=== PATIENT | male | born 1985 | race Caucasian/White ===

== ENCOUNTER 2021-09-30 16:55 | Inpatient (IN) ==
[2021-09-30] MEDS ORDERED: PIPERACILLIN SODIUM/TAZOBACTAM 3.375 GM in DEXTROSE 5% IN WATER 50 ML IV ONE (17:00)
[2021-09-30] MEDS ORDERED: 0.9 % SODIUM CHLORIDE 1,000 ML IV ONE (17:00)
--- NOTE | 2021-09-30 17:28 | Emergency Department Note ---
Abdominal Pain HPI <Diana Staples PA-C - Last Filed: 09/30/21 20:00> General Chief Complaint: Abdominal Pain Stated Complaint: Diverticulite Abscess Time Seen by Provider: 09/30/21 17:00 Source: patient Mode of arrival: ambulatory Limitations: no limitations History of Present Illness HPI Narrative: 35-year-old male presents with 48 hours of left lower quadrant abdominal pain. He was seen in the minor care today and had a CT scan that showed a perforated sigmoid diverticula. Patient was sent over here for definitive care. Patient has no previous history of diverticulitis. Last normal bowel movement was 2 days ago, loose stools since then. No blood in his stool. Denies nausea or vomiting. Last meal 10 AM. Related Data Home Medications Medication Instructions Recorded Confirmed No Known Home Meds 11/13/20 10/01/21 Allergies Allergy/AdvReac Type Severity Reaction Status Date / Time No Known Drug Allergies Allergy Verified 09/30/21 15:21 Review of Systems <Diana Staples PA-C - Last Filed: 09/30/21 20:00> ROS ROS Narrative: Narrative: All systems ED: reviewed and negative except as stated. 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 Pleasant and conversant. HEENT: PERRL, EOMI, normocephalic. Moist mucous membranes. Normal facies Respiratory: Lungs clear to auscultation bilaterally. No respiratory distress. Unlabored breathing. Heart: Regular rate and rhythm, no murmurs/clicks/rubs. Abdomen: Left lower quadrant tenderness, Non distended, hypoactive bowel tones. No organomegaly. Extremities: Warm and well perfused. No edema. DP 2+ bilaterally. No venous stasis. Neuro: No focal deficits. Cranial nerves II-XII grossly normal. Skin: Warm dry, no rashes or lesions, no cyanosis. Psych: Normal mood and affect Heme/Lymph: No abnormal bruising General Limitations: no limitations Course <Diana Staples PA-C - Last Filed: 09/30/21 20:00> Course Course Narrative: 35-year-old male presents with perforated sigmoid diverticuli Reevaluation(s) Reevaluation #1: Establish IV and give Zosyn CBC, CMP, lactic acid, blood cultures x2 IV fluids, antiemetics and analgesics. Reevaluation #2: CBC with mild leukocytosis of 11,500 with left shift CMP with transaminitis with a T bili of 2.1 and AST 61/ALT 83. He has a history of transaminitis and CT scan does show evidence of fatty liver infiltration. No evidence of hepatobiliary obstruction or infectious process on CT imaging today. Consultations Consultation #1: Dr. Chavarria, general surgery consultation. He is recommending placement of a percutaneous drain and will therefore need interventional radiology. We do not have that available here. I have reached out to local hospitals and waiting for response. Consultation #2: Dr. Kumar, general surgery at [facility] does not feel that this patient requires interventional radiology at this time. He believes that the patient is appropriate for admission and IV antibiotics. I reached back to Dr. Chavarria to discuss the patient's case. He was made aware that there are no beds available either in [place] or [place]. He is willing to admit the patient for IV antibiotic therapies and is asked me to start IV Flagyl and ciprofloxacin. Vital Signs Vital signs: Vital Signs Pulse Rate 106 H 09/30/21 17:35 Blood Pressure 136/78 09/30/21 17:35 Pulse Oximetry (%) 97 09/30/21 17:35 Temperature 97.6 F 10/01/21 15:22 Pulse Rate 80 10/01/21 15:22 Respiratory Rate 16 10/01/21 15:22 Blood Pressure 126/79 10/01/21 15:22 Pulse Oximetry (%) 97 10/01/21 15:22 [facility] <Diana Staples PA-C - Last Filed: 09/30/21 20:00> [facility] Narrative Medical decision making narrative: Diverticular abscess I discussed the patient with the general surgeon at [facility], and he feels that the patient does not need interventions at this time and would be appropriate for inpatient admission and IV antibiotics with observation, which can be done here. There are currently no available beds in [facility]. I have r eached backed out to Dr. Chavarria, general surgery, and he agrees that the patient is appropriate for monitoring and IV antibiotics, and is comfortable admitting the patient here at our facility. Lab Data Result diagrams: 10/01/21 05:25 10/01/21 05:25 Labs: Lab Results 09/30/21 Range/Units 17:47 VBG Lactic Acid 1.0 (0.5-2.0) mmol/L ED POC Tests ED POC Tests: TERE - SARS Antigen Negative Discharge Plan Patient/Caregiver Discharge Instructions Pt seen by [employer]/PA only: Yes Clinical Impression: Intestinal diverticular abscess Patient Disposition: Xfer As Inpt ([facility]) Condition: Fair Discharge Date/Time: 09/30/21 21:44 Discharge Location: [facility]
[2021-09-30] MEDS: HYDROmorphone 1 MG/ML SYRINGE IV PRN (18:04)
[2021-09-30] MEDS ORDERED: metroNIDAZOLE 500 MG/100 ML BAG IV ONE (18:55)
[2021-09-30] MEDS ORDERED: CIPROFLOXACIN 400 MG/200 ML BAG IV ONE (19:01)
--- NOTE | 2021-09-30 20:13 | General Surgery Consult Note ---
HPI Data of Consult Patient: new to practice Consult date: 09/30/21 Primary Care Provider: PCP No Consult Narrative Patient Information: Note initiated : 09/30/21 at 8:04 pm Service Date, if different from initiated Date: [] Patient: Juan Basurto a 35 y/o M admitted on for Diverticulite Abscess. Chief Complaint: [] Juan is seen in consultation today with a 48 hour history of worsening and increasingly severe LLQ pain that began 2 nights ago. He was seen in the ER and a CT scan confirmed evidence of Acute Sigmoid Diverticulitis with evidence of a pericolonic abscess measuring roughly 5 cm in maximal dimension. There was no evidence of free air or generalized peritonitis. I recommended transfer to a center with available interventional radiology for evaluation for percutaneous drain placement but was called back after extensive attempts to find a suitable accepting hospital failed. He last ate early today and denies any prior history of intra abdominal surgery or Colonoscopy. His health is generally good and he denies any major medical issues. He is not on any home medications. He denies drug allergies. He is accompanied by his at this time. He has been passing gas and stool and has been without evidence of obstruction. 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 (Acute) Medical History (Updated 09/30/21 @ 20:21 by Cesar Chavarria MD) Gastroenteritis MEDS/ALLERGIES Home Medications and Allergies Home Medications Medication Instructions Recorded Confirmed Type No Known Home Meds 11/13/20 09/30/21 History Allergies Allergy/AdvReac Type Severity Reaction Status Date / Time No Known Drug Allergies Allergy Verified 09/30/21 15:21 Physical Examination Vital Signs Vital signs: Pulse BP Pulse Ox 106 H 112/63 96 09/30/21 19:31 09/30/21 19:31 09/30/21 19:31 General physical appearance General physical exam: well developed, well nourished and no distress Eyes Eye exam: normal ocular movement; negative icteric ENT ENT exam: normal pinna and normal nares; negative nasal discharge Head Head exam IM: Present atraumatic, normal inspection and normocephalic Neck Neck exam: no masses, trachea midline and no lymphadenopathy Cardiovascular Cardiovascular exam IM: Present normal rate and rhythm and RRR Respiratory Respiratory exam: normal respiratory effort and other (no respiratory distress ) Abdomen Abdomen: Present soft and non tender (he has localized tenderness with guarding in the focal LLQ but the remainder of the abdominal exam is soft, non tender and benign ); Absent distended Hernia: Absent none Integumentary Integumentary: Present no rash Neurologic Neurologic: Present other (fully alert and oriented, motor grossly intact ) Psychiatric Psychiatric: Present oriented to time, oriented to person, oriented to place and other (normal affect ) Results Labs Labs: All other labs normal. A/P Assessment and plan (1) Abscess of sigmoid colon due to diverticulitis: Assessment and plan: Acute Sigmoid Diverticulitis with Associated Abscess He has no evidence of generalized peritonitis at this time and appears well localized to the LLQ. Ideally he would undergo evaluation for Percutaneous Dr vogel of the Pericolonic Abscess but that has been unavailable in attempts to transfer therefore we will admit him for IV ABs, Bowel Rest and Close Observational Management. Potential outcomes including possible need for Emergent Abdominal Exploration with Drainage, Washout, Resection and End Colostomy were all discussed with he and his . Additionally, possibility of repeat CT in the next few days with attempted transfer at that time for Percutaneous Drainage was also discussed and they have a good understanding of the situation. Rationale for our intended management plan along with a full discussion of associated Risks, Benefits, Potential Complications and Alternative Treatment Options were also all discussed at length and they are in agreement with the plan Status: Acute Time Spent With Patient Time: Total time spent is greater than 50% in coordination of care (as documented) at patient's floor/unit and/or counseling patient:
[2021-09-30] MEDS ORDERED: ONDANSETRON 4 MG/2 ML VIAL IV PRN (20:29)
[2021-09-30] MEDS ORDERED: ACETAMINOPHEN 325 MG TABLET PO PRN (20:34)
[2021-09-30] MEDS ORDERED: DEXTROSE 5%-1/2NS 1,000 ML IV SCH (20:45)
[2021-09-30] MEDS: CIPROFLOXACIN 400 MG/200 ML BAG IV SCH (21:54)
[2021-09-30] MEDS: metroNIDAZOLE 500 MG/100 ML BAG IV SCH (21:54)
[2021-09-30] MEDS: HYDROmorphone 0.5 MG/0.5 ML SYRINGE IV PRN (22:06)
[2021-09-30] MEDS: DEXTROSE 5%-LR 1,000 ML IV SCH (22:07)
[2021-09-30] MEDS: 0.9 % SODIUM CHLORIDE 10 ML SYRINGE IV SCH (22:08)
[2021-10-01] MEDS: HYDROmorphone 0.5 MG/0.5 ML SYRINGE IV PRN ×2 (00:25→05:18)
[2021-10-01] MEDS: metroNIDAZOLE 500 MG/100 ML BAG IV SCH (05:19)
[2021-10-01] MEDS: 0.9 % SODIUM CHLORIDE 10 ML SYRINGE IV SCH ×3 (05:19→21:45)
[2021-10-01 06:34] LABS: Hematocrit 35.8 % (40.1-51.0); Hemoglobin 11.9 g/dL (13.7-17.5); Mean Cell Volume 85.4 fL (80.0-100.0); Mean Corpuscular HGB Conc 33.2 g/dL (31.0-36.0); Mean Platelet Volume 10.1 fL (7.4-10.4); Platelet Count 233 K/mcL (140-440); RBC 4.19 M/mcL (4.63-6.08); Red Cell Distribution Width 13.4 % (11.5-14.5); WBC 13.6 K/mcL (4.5-11.0)
[2021-10-01 06:52] LABS: Blood Urea Nitrogen 8 mg/dL (6-20); Calcium 8.2 mg/dL (8.6-10.4); Carbon Dioxide 25 mmol/L (22-30); Chloride 99 mmol/L (96-108); Glomerular Filtration Rate 110; Glucose 133 mg/dL (70-105)
[2021-10-01] MEDS: DEXTROSE 5%-LR 1,000 ML IV SCH ×3 (07:33→19:54)
[2021-10-01] MEDS: HYDROmorphone 1 MG/ML SYRINGE IV PRN ×5 (07:33→19:48)
[2021-10-01] MEDS ORDERED: ACETAMINOPHEN 650 MG/65 ML BAG IV PRN (08:41)
--- NOTE | 2021-10-01 09:22 | General Surgery Progress Note ---
SUBJECTIVE Subjective Patient information: Note initiated : 10/01/21 at 9:16 am Service Date, if different from initiated Date: [] Patient: Juan Basurto 35 y/o M admitted on 09/30/21 for Diverticulite Abscess. Chief Complaint: [Sigmiod Diverticulitis with Abscess] Continues to have pain, feels better overall but requiring regular pain meds. Pain remains localized to the LLQ, passing some gas Constitutional Vitals: Vital Signs Temp Pulse Resp BP Pulse Ox 98.1 F 89 18 118/74 96 10/01/21 07:38 10/01/21 07:38 10/01/21 07:38 10/01/21 07:38 10/01/21 07:38 Period Temp Pulse Resp BP Sys/Rogers Pulse Ox Last 24 Hr 98.0 F-100.1 F 89-112 18-20 103-136/57-88 94-98 Intake and Output 09/30/21 10/01/21 10/01/21 21:59 05:59 13:59 Intake Total 1350 1043 Output Total 600 Balance 1350 -600 1043 Weight 224 lb 8 oz Intake & Output: Intake & Output 09/30/21 10/01/21 10/01/21 21:59 05:59 13:59 Intake Total 1350 1043 Output Total 600 Balance 1350 -600 1043 Weight 224 lb 8 oz Intake: IV 1350 1043 Sodium Chloride 0.9% 1,000 ml @ 1000 Wide Open IV [facility] Rx#: [id number] Dextrose 5%-Lactated Ringers 1, 943 000 ml @ 100 mls/hr IV .Q10H [facility] Rx#:[id number] Zosyn 3.375 gm In Dextrose 5% 50 in Water 50 ml @ 100 mls/hr IV ONCE ONE Rx#:[id number] Output: Void Amount 600 Other: Urine Appearance Clear Urine Color Light Gisela General appearance: cooperative and no acute distress Respiratory Additional comments: no respiratory distress Cardiovascular Cardiovascular exam: Present normal rate and rhythm and RRR GI/Abdominal Additional comments: belly remains soft and non distended, localized LLQ Tenderness but remainder is soft and benign Neurological Exam Neurological exam: Present oriented X3 Psychiatric Psychiatric exam: Present normal affect A/P Assessment and plan (1) Left lower quadrant abdominal pain: Status: Acute (2) Abscess of sigmoid colon due to diverticulitis: Assessment and plan: HD #1 Diverticulitis with Abscess WBC has gone up and pain not substantially improved - will add Meropenem and d/c Flagyl If no improvement over next 24-48 hours then will re scan to see if abscess remains and/or has enlarged in which case transfer to an IR capable facility would be necessary Ambulate as tolerated, clear sips ok, re check labs in AM Status: Acute Time Spent With Patient Time: Total time spent is greater than 50% in coordination of care (as documented) at patient's floor/unit and/or counseling patient:
[2021-10-01] MEDS: CIPROFLOXACIN 400 MG/200 ML BAG IV SCH ×3 (10:08→19:49)
[2021-10-01] MEDS: MEROPENEM 0.5 GM in 0.9 % SODIUM CHLORIDE 50 ML IV SCH ×2 (13:14→23:30)
[2021-10-02] MEDS: HYDROmorphone 1 MG/ML SYRINGE IV PRN ×5 (01:20→16:06)
[2021-10-02] MEDS: 0.9 % SODIUM CHLORIDE 10 ML SYRINGE IV SCH ×3 (04:29→20:44)
[2021-10-02] MEDS: MEROPENEM 0.5 GM in 0.9 % SODIUM CHLORIDE 50 ML IV SCH ×3 (05:20→22:19)
[2021-10-02] MEDS: DEXTROSE 5%-LR 1,000 ML IV SCH ×3 (05:24→22:55)
[2021-10-02 06:53] LABS: Hematocrit 35.5 % (40.1-51.0); Hemoglobin 11.5 g/dL (13.7-17.5); Mean Cell Volume 86.4 fL (80.0-100.0); Mean Corpuscular HGB Conc 32.4 g/dL (31.0-36.0); Mean Platelet Volume 9.8 fL (7.4-10.4); Platelet Count 284 K/mcL (140-440); RBC 4.11 M/mcL (4.63-6.08); Red Cell Distribution Width 13.5 % (11.5-14.5); WBC 10.3 K/mcL (4.5-11.0)
[2021-10-02 07:01] LABS: Blood Urea Nitrogen 8 mg/dL (6-20); Calcium 8.5 mg/dL (8.6-10.4); Carbon Dioxide 24 mmol/L (22-30); Chloride 100 mmol/L (96-108); Glomerular Filtration Rate 116; Glucose 108 mg/dL (70-105)
[2021-10-02] MEDS: CIPROFLOXACIN 400 MG/200 ML BAG IV SCH ×2 (08:30→20:39)
--- NOTE | 2021-10-02 09:51 | General Surgery Progress Note ---
SUBJECTIVE Subjective Patient information: Note initiated : 10/02/21 at 9:48 am Service Date, if different from initiated Date: [] Patient: Juan Basurto 35 y/o M admitted on 09/30/21 for Diverticulite Abscess. Chief Complaint: [Sigmoid Diverticulitis with Diverticular Abscess] Definitely feels better today with less pain and no temps. Passing some gas and just feels much better overall. Constitutional Vitals: Vital Signs Temp Pulse Resp BP Pulse Ox 97.3 F 91 H 18 118/76 97 10/02/21 08:00 10/02/21 08:00 10/02/21 08:00 10/02/21 08:00 10/02/21 08:00 Period Temp Pulse Resp BP Sys/Rogers Pulse Ox Last 24 Hr 97.3 F-98.9 F 80-92 16-18 117-126/71-79 95-98 Intake and Output 10/01/21 10/02/21 10/02/21 21:59 05:59 13:59 Intake Total 1350 100 Output Total 1150 800 500 Balance 200 -700 -500 Weight 225 lb 4 oz Intake & Output: Intake & Output 10/01/21 10/02/21 10/02/21 21:59 05:59 13:59 Intake Total 1350 100 Output Total 1150 800 500 Balance 200 -700 -500 Weight 225 lb 4 oz Intake: IV 1250 100 Dextrose 5%-Lactated Ringers 1, 1000 000 ml @ 100 mls/hr IV .Q10H [facility] Rx#:[id number] Merrem 0.5 gm In Sodium 50 100 Chloride 0.9% 50 ml @ 100 mls/ hr IV Q8 [facility] Rx#:[id number] Oral 100 Output: Void Amount 1150 800 500 Other: Urine Appearance Clear Clear Clear Urine Color Dark Yellow Dark Yellow Dark Yellow Light Gisela Urine Odor Normal Normal Normal General appearance: no acute distress Respiratory Additional comments: no respiratory distress Cardiovascular Cardiovascular exam: Present RRR GI/Abdominal Additional comments: soft and non distended, lessened LLQ tenderness and remainder of exam benign Extremities Exam Additional comments: well perfused A/P Narrative A/P Narrative: HD#3 Acute Sigmoid Diverticulitis with Diverticular Abscess Seems improved with AB change yesterday Continue current mgmt for now, if doing will likely start clears in next day or two and then also Re Scan to assess status of Abscess to see if transfer for IR drainage is necessary Plan reviewed with him at length and all questions answered Time Spent With Patient Time: Total time spent is greater than 50% in coordination of care (as documented) at patient's floor/unit and/or counseling patient:
[2021-10-02] MEDS: HYDROmorphone 0.5 MG/0.5 ML SYRINGE IV PRN (20:38)
[2021-10-03] MEDS: DEXTROSE 5%-LR 1,000 ML IV SCH ×4 (00:48→14:20)
[2021-10-03] MEDS: MEROPENEM 0.5 GM in 0.9 % SODIUM CHLORIDE 50 ML IV SCH ×3 (05:12→21:47)
[2021-10-03] MEDS: 0.9 % SODIUM CHLORIDE 10 ML SYRINGE IV SCH ×3 (05:15→22:14)
[2021-10-03 07:15] LABS: Hematocrit 38.7 % (40.1-51.0); Hemoglobin 12.3 g/dL (13.7-17.5); Mean Cell Volume 86.6 fL (80.0-100.0); Mean Corpuscular HGB Conc 31.8 g/dL (31.0-36.0); Mean Platelet Volume 9.7 fL (7.4-10.4); Platelet Count 343 K/mcL (140-440); RBC 4.47 M/mcL (4.63-6.08); Red Cell Distribution Width 13.4 % (11.5-14.5); WBC 8.6 K/mcL (4.5-11.0)
[2021-10-03 07:27] LABS: Blood Urea Nitrogen 11 mg/dL (6-20); Carbon Dioxide 24 mmol/L (22-30); Chloride 101 mmol/L (96-108); Glomerular Filtration Rate 116; Glucose 107 mg/dL (70-105)
[2021-10-03] MEDS: CIPROFLOXACIN 400 MG/200 ML BAG IV SCH ×2 (09:31→20:24)
--- NOTE | 2021-10-03 10:40 | General Surgery Progress Note ---
SUBJECTIVE Subjective Patient information: Note initiated : 10/03/21 at 10:37 am Service Date, if different from initiated Date: [] Patient: Juan Basurto 35 y/o M admitted on 09/30/21 for Diverticulite Abscess. Chief Complaint: [Acute Sigmoid Diverticulitis with Abscess] Feeling much better today with far less pain and having good bowel function Constitutional Vitals: Vital Signs Temp Pulse Resp BP Pulse Ox 96 F L 75 18 131/86 96 10/03/21 07:25 10/03/21 07:25 10/03/21 09:39 10/03/21 07:25 10/03/21 07:25 Period Temp Pulse Resp BP Sys/Rogers Pulse Ox Last 24 Hr 96 F-98.4 F 75-96 16-20 125-135/83-89 95-98 Intake and Output 10/02/21 10/03/21 10/03/21 21:59 05:59 13:59 Intake Total 1800 1100 Output Total 625 475 Balance 1175 625 Weight 219 lb Intake & Output: Intake & Output 10/02/21 10/03/21 10/03/21 21:59 05:59 13:59 Intake Total 1800 1100 Output Total 625 475 Balance 1175 625 Weight 219 lb Intake: IV 250 1100 Dextrose 5%-Lactated Ringers 1, 1000 000 ml @ 100 mls/hr IV .Q10H [facility] Rx#:[id number] Merrem 0.5 gm In Sodium 50 100 Chloride 0.9% 50 ml @ 100 mls/ hr IV Q8 [facility] Rx#:[id number] Oral 1550 0 Output: Void Amount 625 475 Other: Meal Lunch Percent of Meal Consumed 100% Feeding Ability Independent Urine Appearance Clear Clear Clear Urine Color Light Gisela Light Gisela Dark Gisela Urine Odor Normal Strong General appearance: cooperative and no acute distress Respiratory Additional comments: no respiratory distress Cardiovascular Cardiovascular exam: Present normal rate and rhythm and RRR GI/Abdominal Additional comments: soft and non distended, some residual focal LLQ tenderness A/P Narrative A/P Narrative: Acute Sigmoid Diverticulitis with Abscess Seems to be resolving on current regimen Start Clear Liquids Will consider repeat CT prior to discharge to assure abscess resolving Time Spent With Patient Time: Total time spent is greater than 50% in coordination of care (as documented) at patient's floor/unit and/or counseling patient:
[2021-10-04] MEDS: DEXTROSE 5%-LR 1,000 ML IV SCH ×4 (04:23→20:07)
[2021-10-04] MEDS: MEROPENEM 0.5 GM in 0.9 % SODIUM CHLORIDE 50 ML IV SCH ×3 (05:18→22:23)
[2021-10-04] MEDS: 0.9 % SODIUM CHLORIDE 10 ML SYRINGE IV SCH ×3 (05:56→22:24)
[2021-10-04] MEDS: CIPROFLOXACIN 400 MG/200 ML BAG IV SCH ×2 (08:33→21:06)
--- NOTE | 2021-10-04 09:06 | General Surgery Progress Note ---
SUBJECTIVE Subjective Patient information: Note initiated : 10/04/21 at 9:03 am Service Date, if different from initiated Date: [] Patient: Juan Basurto 35 y/o M admitted on 09/30/21 for Diverticulite Abscess. Chief Complaint: [Sigmoid Diverticulitis with Diverticular Abscess] He feels much better this AM. Having normal bowel function and tolerating clears. Minimal residual pain Constitutional Vitals: Vital Signs Temp Pulse Resp BP Pulse Ox 97.5 F 69 16 119/72 98 10/04/21 07:46 10/04/21 07:46 10/04/21 07:46 10/04/21 07:46 10/04/21 07:46 Period Temp Pulse Resp BP Sys/Rogers Pulse Ox Last 24 Hr 97.5 F-98.5 F 68-86 16-20 119-131/72-86 95-99 Intake and Output 10/03/21 10/04/21 10/04/21 21:59 05:59 13:59 Intake Total 1490 1250 240 Output Total 1925 500 325 Balance -435 750 -85 Weight 216 lb Intake & Output: Intake & Output 10/03/21 10/04/21 10/04/21 21:59 05:59 13:59 Intake Total 1490 1250 240 Output Total 1925 500 325 Balance -435 750 -85 Weight 216 lb Intake: IV 250 1100 Dextrose 5%-Lactated Ringers 1, 1000 000 ml @ 75 mls/hr IV .[id number] [facility] Rx#:[id number] Merrem 0.5 gm In Sodium 50 100 Chloride 0.9% 50 ml @ 100 mls/ hr IV Q8 [facility] Rx#:[id number] Oral 1240 150 240 Output: Void Amount 1925 500 325 Other: Meal Dinner Breakfast Percent of Meal Consumed 100% 100% Feeding Ability Independent Independent Urine Appearance Clear Clear Clear Urine Color Dark Yellow Dark Yellow Light Gisela Urine Odor Strong General appearance: cooperative and no acute distress Respiratory Respiratory exam: Present normal respiratory exam Cardiovascular Cardiovascular exam: Present normal rate and rhythm and RRR GI/Abdominal Additional comments: soft and non distended, mild residual tenderness in LLQ but no peritoneal findings and remaining abdominal exam is benign A/P Narrative A/P Narrative: Sigmoid Diverticulitis with Diverticular Abscess Much improved overall Continue IV ABs and clears for now Would favor a lengthier period of time on IV ABs given the initial radiographic picture and this is dicussed with him at length as well Time Spent With Patient Time: Total time spent is greater than 50% in coordination of care (as documented) at patient's floor/unit and/or counseling patient:
[2021-10-05] MEDS: MEROPENEM 0.5 GM in 0.9 % SODIUM CHLORIDE 50 ML IV SCH ×3 (06:24→22:25)
[2021-10-05] MEDS: 0.9 % SODIUM CHLORIDE 10 ML SYRINGE IV SCH ×3 (06:24→22:26)
--- NOTE | 2021-10-05 06:45 | General Surgery Progress Note ---
SUBJECTIVE Subjective Patient information: Note initiated : 10/05/21 at 6:43 am Service Date, if different from initiated Date: [] Patient: Juan Basurto 35 y/o M admitted on 09/30/21 for Diverticulite Abscess. Chief Complaint: [Sigmoid Diverticulitis with Diverticular Abscess ] Doing well, tolerating clears, minimal residual pain Constitutional Vitals: Vital Signs Temp Pulse Resp BP Pulse Ox 97.1 F 65 14 121/83 97 10/05/21 03:25 10/05/21 03:25 10/05/21 03:25 10/05/21 03:25 10/05/21 03:25 Period Temp Pulse Resp BP Sys/Rogers Pulse Ox Last 24 Hr 97.1 F-98.3 F 65-82 14-18 118-126/72-83 96-99 Intake and Output 10/04/21 10/05/21 10/05/21 21:59 05:59 13:59 Intake Total 1410 425 Output Total 1600 725 300 Balance -190 -300 -300 Weight 215 lb 8 oz Intake & Output: Intake & Output 10/04/21 10/05/21 10/05/21 21:59 05:59 13:59 Intake Total 1410 425 Output Total 1600 725 300 Balance -190 -300 -300 Weight 215 lb 8 oz Intake: IV 1050 250 Dextrose 5%-Lactated Ringers 1, 1000 000 ml @ 75 mls/hr IV .[id number] [facility] Rx#:[id number] Merrem 0.5 gm In Sodium 50 50 Chloride 0.9% 50 ml @ 100 mls/ hr IV Q8 [facility] Rx#:[id number] Oral 360 175 Output: Void Amount 1600 725 300 Other: Meal Lunch Percent of Meal Consumed 100% Feeding Ability Independent Urine Appearance Clear Clear Urine Color Bright Yellow Bright Yellow Stool Size Small Stool Color Brown Stool Consistency Soft General appearance: cooperative and no acute distress Respiratory Respiratory exam: Present normal respiratory exam Additional comments: no respiratory distress Cardiovascular Cardiovascular exam: Present normal rate and rhythm and RRR GI/Abdominal Additional comments: soft and minimally tender LLQ, non distended, no mass Extremities Exam Additional comments: well perfused A/P Narrative A/P Narrative: Resolving Acute Sigmoid Diverticulitis with Diverticular Abscess Advance Diet Today Another 24 hours of IV ABs Probable Discharge home on Oral ABs tomorrow Time Spent With Patient Time: Total time spent is greater than 50% in coordination of care (as documented) at patient's floor/unit and/or counseling patient:
[2021-10-05 07:46] LABS: Hematocrit 40.3 % (40.1-51.0); Hemoglobin 12.9 g/dL (13.7-17.5); Mean Cell Volume 85.2 fL (80.0-100.0); Mean Platelet Volume 9.6 fL (7.4-10.4); Platelet Count 468 K/mcL (140-440); RBC 4.73 M/mcL (4.63-6.08); Red Cell Distribution Width 13.2 % (11.5-14.5); WBC 11.1 K/mcL (4.5-11.0)
[2021-10-05 08:04] LABS: Blood Urea Nitrogen 9 mg/dL (6-20); Calcium 8.9 mg/dL (8.6-10.4); Carbon Dioxide 26 mmol/L (22-30); Chloride 99 mmol/L (96-108); Glomerular Filtration Rate 110; Glucose 106 mg/dL (70-105)
[2021-10-05] MEDS: DEXTROSE 5%-LR 1,000 ML IV SCH ×2 (13:16→14:25)
[2021-10-06] MEDS: DEXTROSE 5%-LR 1,000 ML IV SCH ×3 (05:17→17:22)
[2021-10-06] MEDS: MEROPENEM 0.5 GM in 0.9 % SODIUM CHLORIDE 50 ML IV SCH ×3 (05:18→22:10)
[2021-10-06] MEDS: 0.9 % SODIUM CHLORIDE 10 ML SYRINGE IV SCH ×3 (06:12→22:14)
--- NOTE | 2021-10-06 09:03 | General Surgery Progress Note ---
SUBJECTIVE Subjective Patient information: Note initiated : 10/06/21 at 8:59 am Service Date, if different from initiated Date: [] Patient: Juan Basurto 35 y/o M admitted on 09/30/21 for Diverticulite Abscess. Chief Complaint: [Sigmoid Diverticulitis with Diverticular Abscess] Continues to feel much improved overall. Tolerating full liquids with bowel function - still has a sense of some pain and fullness in the area Constitutional Vitals: Vital Signs Temp Pulse Resp BP Pulse Ox 96.9 F L 72 16 116/76 99 10/06/21 08:00 10/06/21 08:00 10/06/21 08:00 10/06/21 08:00 10/06/21 08:00 Period Temp Pulse Resp BP Sys/Rogers Pulse Ox Last 24 Hr 96.7 F-98.1 F 60-84 14-22 116-140/68-88 95-99 Intake and Output 10/05/21 10/06/21 10/06/21 21:59 05:59 13:59 Intake Total 1440 1200 Output Total 1250 1100 Balance 190 100 Weight 216 lb Intake & Output: Intake & Output 10/05/21 10/06/21 10/06/21 21:59 05:59 13:59 Intake Total 1440 1200 Output Total 1250 1100 Balance 190 100 Weight 216 lb Intake: IV 50 1100 Dextrose 5%-Lactated Ringers 1, 1000 000 ml @ 75 mls/hr IV .[id number] [facility] Rx#:[id number] Merrem 0.5 gm In Sodium 50 100 Chloride 0.9% 50 ml @ 100 mls/ hr IV Q8 [facility] Rx#:[id number] Oral 1390 100 Output: Void Amount 1250 1100 Other: Meal Dinner Yogurt/Ice Cream Percent of Meal Consumed 100% 100% Feeding Ability Independent Independent Urine Appearance Clear Urine Color Bright Yellow Stool Size Small Small Stool Color Brown Brown Black Stool Consistency Loose Loose # Voids 3 # Bowel Movements 1 1 General appearance: cooperative and no acute distress Respiratory Additional comments: no respiratory distress Cardiovascular Cardiovascular exam: Present RRR GI/Abdominal Additional comments: soft and non distended, non tender in LLQ and elsewhere A/P Narrative A/P Narrative: Sigmoid Diverticulitis with Diverticular Abscess WBC bumped back up yesterday - will recheck this am and if still up will resume Cipro and check a CT scan to assess status of abscess No discharge today - continue IV ABs and full liquids for now Time Spent With Patient Time: Total time spent is greater than 50% in coordination of care (as documented) at patient's floor/unit and/or counseling patient:
[2021-10-06 09:53] LABS: ALT/SGPT 119 U/L (<40); AST/SGOT 50 U/L (<40); Albumin 3.7 gm/dL (3.2-5.2); Albumin/Globulin Ratio 1.1 (1.0-2.3); Alkaline Phosphatase 83 U/L (39-117); Bilirubin,Direct < 0.2 mg/dL (0-0.3); Bilirubin,Total 0.6 mg/dL (0.1-1.0); Blood Urea Nitrogen 9 mg/dL (6-20); Calcium 8.8 mg/dL (8.6-10.4); Carbon Dioxide 23 mmol/L (22-30); Chloride 97 mmol/L (96-108); Globulin 3.5 gm/dL (2.2-3.7); Glomerular Filtration Rate 116; Glucose 186 mg/dL (70-105); Lactate Dehydrogenase 154 U/L (135-225); Phosphorous 2.6 mg/dL (2.5-4.5); Triglycerides 256 mg/dL (<150)
[2021-10-06 10:40] LABS: Basophils # (Auto) 0.09 K/mcL (0.00-0.30); Basophils % (Auto) 0.7 % (0.0-2.0); Eosinophils # (Auto) 0.26 K/mcL (0.00-0.70); Eosinophils % (Auto) 2.1 % (0.0-7.0); Hemoglobin 13.6 g/dL (13.7-17.5); Lymphocytes # (Auto) 2.47 K/mcL (1.50-4.80); Mean Cell Volume 85.4 fL (80.0-100.0); Mean Corpuscular HGB Conc 32.4 g/dL (31.0-36.0); Mean Platelet Volume 9.7 fL (7.4-10.4); Monocytes # (Auto) 0.64 K/mcL (0.10-0.90); Monocytes % (Auto) 5.3 % (1.0-12.0); Neutrophils % (Auto) 71.6 % (38.0-78.0); Platelet Count 511 K/mcL (140-440); RBC 4.92 M/mcL (4.63-6.08); Red Cell Distribution Width 13.5 % (11.5-14.5); WBC 12.1 K/mcL (4.5-11.0)
[2021-10-06] MEDS ORDERED: IOPAMIDOL 100 ML BOTTLE IV ONE (11:06)
[2021-10-06 11:40] LABS: Lymphocytes % (Auto) 20.3 % (15.5-49.0)
--- NOTE | 2021-10-06 12:22 | Cat Scan Report ---
CLINICAL INFORMATION: [id number] COMPARISON: Abdomen and pelvic CT six days prior: 09/30/2021 TECHNIQUE: Following enteric contrast, 80 cc of Isovue-370 were injected intravenously, and 60 seconds later, 0.625 mm helical slices were obtained from the mid heart through the subtrochanteric regions. Following reconstruction, 2.5 mm sagittal, coronal and axial reformatted images were processed and reviewed at bone, lung and soft tissue windows. Five minutes later, 0.625 mm helical slices were obtained from the mid heart through the kidneys and viewed at soft tissue windows.The exam was performed using radiation dose optimization techniques including, but not limited to, automated exposure control, adjustment of the mA and/or kV according to patient size and use of iterative reconstruction technique. FINDINGS: The lung bases are clear. No effusions. The visualized heart is grossly normal. Abdominal images show the gallbladder and bile ducts, liver, both kidneys, adrenal glands, spleen, pancreas and aorta, including aortic branches, are normal in size, configuration and attenuation without focal lesion. Moderate free air has developed in the anterior nondependent mesenteric cavity with extension into the anterior perihepatic region. Smaller amounts of intraperitoneal gas are seen adjacent to the falciform ligament and in Morison's pouch on the right. There is no free fluid or adenopathy.. Pelvic images show normal urinary bladder. Prostate and seminal vesicles are unremarkable. The stomach, small bowel, and appendix are all unremarkable-as before. Diverticulitis in the distal descending and proximal sigmoid junction has generally improved from the previous exam. Specifically,: Decrease in wall thickness and phlegmon in the surrounding fat is also decreased.. However, the abscess, and the anterior pericolonic region, show slight increase in size now spanning 6 x 3 x 7 cm. The wall is thin with small amount of fluid seen in the dependent region of the abscess. Bone windows show no osseous abnormality IMPRESSION: 1. Overall, improvement in distal descending and proximal sigmoid colon diverticulitis. Thin-walled abscess the anterior pericolonic fat shows modest increase in size spanning 7 x 6 cm. 2. Moderate free intraperitoneal air in the anterior nondependent mesenteric cavity has increased considerably since the previous exam. Presumably, surgery has not been performed and this has originated from a perforated inflamed diverticula. Interpreted and Authenticated by: Kevan Cornell 10/06/21
[2021-10-06] MEDS: CIPROFLOXACIN 400 MG/200 ML BAG IV SCH (15:37)
[2021-10-07] MEDS: DEXTROSE 5%-LR 1,000 ML IV SCH ×3 (00:15→19:08)
[2021-10-07] MEDS: CIPROFLOXACIN 400 MG/200 ML BAG IV SCH ×3 (00:15→20:27)
[2021-10-07] MEDS: MEROPENEM 0.5 GM in 0.9 % SODIUM CHLORIDE 50 ML IV SCH ×2 (06:23→13:46)
[2021-10-07] MEDS: 0.9 % SODIUM CHLORIDE 10 ML SYRINGE IV SCH ×2 (06:24→12:31)
[2021-10-07 06:40] LABS: Hematocrit 41.4 % (40.1-51.0); Hemoglobin 13.6 g/dL (13.7-17.5); Mean Cell Volume 84.7 fL (80.0-100.0); Mean Corpuscular HGB Conc 32.9 g/dL (31.0-36.0); Mean Platelet Volume 9.3 fL (7.4-10.4); Platelet Count 533 K/mcL (140-440); RBC 4.89 M/mcL (4.63-6.08); Red Cell Distribution Width 13.2 % (11.5-14.5); WBC 10.9 K/mcL (4.5-11.0)
[2021-10-07 07:03] LABS: Blood Urea Nitrogen 9 mg/dL (6-20); Calcium 8.9 mg/dL (8.6-10.4); Carbon Dioxide 25 mmol/L (22-30); Chloride 100 mmol/L (96-108); Glomerular Filtration Rate 116; Glucose 107 mg/dL (70-105)
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
--- NOTE | 2021-10-12 11:02 | Discharge Summary ---
DATE OF ADMISSION: 09/30/2021 DATE OF DISCHARGE: 10/07/2021 ADMITTING DIAGNOSIS: Acute sigmoid diverticulitis with peridiverticular abscess. DISCHARGE DIAGNOSIS: Acute sigmoid diverticulitis with peridiverticular abscess. ADMITTING PHYSICIAN: Cesar Chavarria M.D. INDICATIONS FOR ADMISSION: The patient is a 35-year-old male who presented to the Emergency Room on 09/30/2021 fairly early in the evening with roughly a 48-hour of worsening left lower quadrant abdominal pain and discomfort. CT scan was obtained, which demonstrated findings consistent with an acute sigmoid diverticulitis as well as peridiverticular abscess. At that time, he had focal peritoneal findings to the left lower abdomen without any evidence of peritonitis diffusely. The remainder of his abdominal exam was entirely benign. Given the abscess that he had at that time, which was modest in size and not definitively drainable, we felt it was reasonable to admit him to the hospital, although we made attempts to arrange for him to be transferred from the Emergency Room to a receiving facility where an interventional radiology was available, but none was forthcoming in terms of their willingness to accept him. For that reason, we went ahead and admitted him. He had no indications for operative intervention. Upon presentation, he was placed on IV antibiotics. HOSPITAL COURSE: The patient was admitted on 09/30/2021, as mentioned. He was admitted and placed on IV Cipro and Flagyl and the following morning was really not substantially improved. He continued to have left lower quadrant pain and tenderness, and he remained benign elsewhere in his belly. 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 Based on that, I switched him over to Meropenem and discontinued the Flagyl, and had him on Meropenem and Cipro for a period of time. He immediately responded appeared to respond to this and by the next day was feeling markedly improved; his white count was normalizing and his tenderness and pain were resolving. On hospital day three, we began him on some clear liquids, which he seemed to tolerate well. He was passing gas and having some evidence of bowel function, and we discontinued the Cipro roughly around that time as well. The following day, however, his white count had gone up around the time he had progressed to full liquids. He continued to have bowel function, but based on the fact that he continued to have some mild tenderness in the area focally and had a white count that was creeping back up, we elected to CT scan him, which we did on hospital day six, 10/06/2021. At this point, he was found to have an abscess that was then 6 x 7 cm in maximal dimension, quite a bit larger, with indications again for percutaneous drainage. He had some free air in the belly that he had not previously had, but he remained remarkably benign clinically. He had no peritonitis at all and really had minimal to no tenderness over the left lower abdomen, and his white count was in the process of normalizing with IV antibiotics and the sensation of oral intake. At this point, I felt that he needed to be transferred for definitive drain placement to a facility that could provide this, and we made arrangements for him to be transferred over the next day or so to a facility that had interventional radiology available for a drain placement. He was ultimately transferred on 10/07/2021 to [facility] in the [facility] for IR drain placement. Issues have been discussed with him at length and he had a good understanding of all this and very much wished to undergo the transfer. COMPLICATIONS OF HOSPITAL STAY: None. DISPOSITION: He will follow up with Dr. Chavarria here in the area, once he returns, from his care at [facility] if he so wishes. We are happy to see him in Clinic in that regard. PROCEDURES PERFORMED: None. IMAGING: CT imaging performed on 09/30/2021 and 10/06/2021. BW:juice Job ID: [id number] Doc ID: [id number] Cesar Chavarria M.D.
== END 2021-10-07 21:48 | disposition short-term general hospital (02) | DRG 392 ==
LOC: ED 16:55 → MEDSUR 21:44
PROVIDERS: ADMIT Surgery Surgical Critical Care; ATTEND Surgery Surgical Critical Care